=== PATIENT | female | born 1990 | race Caucasian/White ===

== ENCOUNTER 2017-09-25 15:57 | Emergency (ER) | payer SELFPAY ==
[2017-09-25 18:06] VITALS: BP 105/70
[2017-09-25 19:06] LABS: Bilirubin,Urine NEG (Negative); Blood,Urine LG (Negative); Ketones,Urine TR mg/dL (Negative); Leukocyte Esterase,Urine SM (Negative); Mucus,Urine 2+ /HPF; Nitrite,Urine NEG (Negative)
[2017-09-25 19:13] LABS: RBC,Urine > 182.0 /HPF (0.0-6.0)
[2017-09-25 20:31] LABS: Basophils % (Auto) 0.7 % (0.0-1.8); Eosinophils % (Auto) 1.1 % (0.0-4.3); Hematocrit 39.4 % (30.3-42.9); Hemoglobin 13.4 gm/dl (10.1-14.3); Mean Corpuscular HGB Conc 34 % (30-34); Mean Corpuscular Hemoglobin 34 pg (28-32); Mean Corpuscular Volume 99 fl (79-97); Red Blood Count 3.98 M/mm3 (3.65-5.03); Red Cell Distribution Width 12.8 % (13.2-15.2)
[2017-09-25 20:33] LABS: Platelet Count 197 K/mm3 (140-440)
[2017-09-25 20:59] LABS: Anion Gap 18 mmol/L; BUN/Creatinine Ratio 14; Blood Urea Nitrogen 7 mg/dL (7-17); Calcium 9.5 mg/dL (8.4-10.2); Carbon Dioxide 24 mmol/L (22-30); Chloride 99.6 mmol/L (98-107); Glucose 83 mg/dL (65-100); Potassium 3.9 mmol/L (3.6-5.0); Sodium 138 mmol/L (137-145)
--- NOTE | 2017-09-25 23:36 | Ultrasound Report ---
FINAL REPORT EXAM: US OB TRANSVAGINAL HISTORY: r/o misscarriage TECHNIQUE: Obstetrical ultrasound transvaginal PRIORS: None. FINDINGS: Uterus is 9.1 x 4.3 x 5.2 centimeters No myometrial abnormality seen. Endometrial thickness is 1.0 centimeters No evidence for gestational sac or structures within the uterus No free-fluid identified Right ovary is 3.7 x 2.2 x 1.6 centimeters Left ovary is 2.4 x 1 4 x 1.9 centimeters No abnormal adnexal mass is seen IMPRESSION: No intrauterine gestation identified. May reflect very early gestation. Continued follow-up beta HCG recommended
--- NOTE | 2017-09-25 23:39 | Ultrasound Report ---
FINAL REPORT EXAM: US OB < = 14 WEEKS FETUS HISTORY: r/o misscarriage TECHNIQUE: Obstetrical ultrasound transabdominal PRIORS: None. FINDINGS: Uterus is 9.1 x 4.3 x 5.2 centimeters No myometrial abnormality seen. Endometrial thickness is 1.0 centimeters No evidence for gestational sac or structures within the uterus No free-fluid identified Right ovary is 3.7 x 2.2 x 1.6 centimeters Left ovary is 2.4 x 1 4 x 1.9 centimeters No abnormal adnexal mass is seen IMPRESSION: IMPRESSION: No intrauterine gestation identified. May reflect very early gestation. Continued follow-up beta HCG recommended
== END 2017-09-25 23:06 | disposition left against medical advice (07) ==
LOC: ED 15:57
DX: O20.9 Hemorrhage in early pregnancy, unspecified (principal); Z3A.01 Less than 8 weeks gestation of pregnancy; Z53.21 Procedure and treatment not carried out due to patient leaving prior to being seen by health care provider
CPT/HCPCS: 36415; 76801; 76817; 80048; 81001; 84702; 85025